=== PATIENT | female | born 1990 | race Asian ===

== ENCOUNTER 2017-04-24 00:38 | Inpatient (IN) | payer OTHER ==
[~2017-04-24] VITALS: Ht 162.6 cm; Wt 67.2 kg
[2017-04-24] MEDS ORDERED: OXYTOCIN 30U/ 0.9% NaCL 500ML 500 ML IV ONE (01:34)
[2017-04-24] MEDS ORDERED: D5%-LACTATED RINGERS 1,000 ML IV SCH (01:34)
[2017-04-24] MEDS: LACTATED RINGERS 1,000 ML IV SCH ×2 (01:50→08:47)
[2017-04-24] MEDS ORDERED: TERBUTALINE 1 MG/ML, 1ML IVPush PRN (02:00)
[2017-04-24] MEDS ORDERED: METOCLOPRAMIDE 5 MG/ML, 2ML IVPush PRN (02:00)
[2017-04-24] MEDS ORDERED: SODIUM CITRATE/CITRIC ACID 30 ML UDC PO PRN (02:00)
[2017-04-24] MEDS ORDERED: FENTANYL PF 100 MCG/2ML IV PRN (02:00)
[2017-04-24] MEDS ORDERED: ONDANSETRON 2MG/ML, 2ML IVPush PRN (02:00)
[2017-04-24] MEDS ORDERED: CALCIUM CARBONATE 500 MG TAB.CHEW PO PRN (02:00)
[2017-04-24] MEDS ORDERED: FENTANYL PF 100 MCG/2ML IVPush PRN (02:00)
[2017-04-24 02:12] LABS: HEMATOCRIT 38.5 % (34.6-47.8); HEMOGLOBIN 12.8 g/dL (11.7-16.4); WHITE BLOOD COUNT 7.6 x10^3/uL (3.4-10)
[2017-04-24] MEDS ORDERED: NEWBORN KIT ONE (02:27)
[2017-04-24] MEDS ORDERED: LIDOCAINE 1%, 20ML ONE (02:27)
[2017-04-24] MEDS ORDERED: OXYTOCIN 30U/ 0.9% NaCL 500ML 500 ML ONE (02:28)
[2017-04-24] MEDS ORDERED: MISOPROSTOL 200 MCG TABLET ONE (02:28)
[2017-04-24] MEDS ORDERED: PLEASE ENTER HEIGHT AND WEIGHT MC SCH (03:00)
[2017-04-24] MEDS ORDERED: PLEASE ENTER ALLERGIES MC SCH ×2 (03:00)
[2017-04-24] MEDS ORDERED: PREN1TAB60 PO (03:25)
[2017-04-24] MEDS ORDERED: OXYTOCIN 30U/ 0.9% NaCL 500ML 500 ML IV PRN (05:00)
[2017-04-24 07:19] VITALS: BP 107/59
[2017-04-24] MEDS ORDERED: FENTANYL/BUPIV./NS/PF 250 ML EPIDCONT ONE (09:06)
[2017-04-24] MEDS ORDERED: LIDOCAINE/PF 1.5%-EPI 1:200K, 30ML ONE (09:06)
[2017-04-24] MEDS ORDERED: LACTATED RINGERS 1,000 ML IV SCH (10:27)
[2017-04-24] MEDS ORDERED: FENTANYL/BUPIV./NS/PF 250 ML EPIDCONT SCH (10:27)
[2017-04-24] MEDS ORDERED: LACTATED RINGERS 1,000 ML IVBOLUS PRN (10:30)
[2017-04-24] MEDS: OXYTOCIN 30U/ 0.9% NaCL 500ML 500 ML IV SCH (17:24)
[2017-04-24] MEDS ORDERED: OXYcodone IR 5MG TABLET PO PRN (17:30)
[2017-04-24] MEDS ORDERED: ONDANSETRON 2MG/ML, 2ML IV PRN (17:30)
[2017-04-24] MEDS ORDERED: MISOPROSTOL 200 MCG TABLET PR PRN (17:30)
[2017-04-24] MEDS ORDERED: IBUPROFEN 600 MG TABLET ONE (19:15)
[2017-04-24] MEDS: IBUPROFEN 600 MG TABLET PO PRN (19:17)
[2017-04-24 20:10] VITALS: BP 105/66
[2017-04-25] VITALS: BP 103/65
[2017-04-25 01:14] LABS: HEMATOCRIT 38.4 % (34.6-47.8); HEMOGLOBIN 12.7 g/dL (11.7-16.4); WHITE BLOOD COUNT 14.9 x10^3/uL (3.4-10)
[2017-04-25] MEDS: OXYTOCIN 30U/ 0.9% NaCL 500ML 500 ML IV SCH ×3 (03:24→23:24)
[2017-04-25 04:40] VITALS: BP 90/61
[2017-04-25 08:00] VITALS: BP 114/76
[2017-04-25] MEDS: PRENATAL VIT/IRON/FA 1 EACH TABLET PO SCH (08:32)
[2017-04-25] MEDS: IBUPROFEN 600 MG TABLET PO PRN ×3 (08:36→22:10)
[2017-04-25] MEDS: DOCUSATE 100 MG CAPSULE PO PRN ×2 (08:38→20:56)
[2017-04-25 12:00] VITALS: BP 110/74
[2017-04-25] MEDS ORDERED: DIPH,PERTUSS(ACELL),TET VAC/PF NC IM-VACC ONE (16:09)
[2017-04-25 16:53] VITALS: BP 113/76
[2017-04-25 20:00] VITALS: BP 104/68
[2017-04-25] MEDS: OXYcodone/APAP 5/325MG TABLET PO PRN (20:56)
[2017-04-26] MEDS: OXYcodone/APAP 5/325MG TABLET PO PRN ×2 (04:16→08:08)
[2017-04-26] MEDS: IBUPROFEN 600 MG TABLET PO PRN ×2 (04:16→12:45)
[2017-04-26] MEDS: DOCUSATE 100 MG CAPSULE PO PRN (08:08)
[2017-04-26] MEDS: PRENATAL VIT/IRON/FA 1 EACH TABLET PO SCH (08:08)
[2017-04-26 08:10] VITALS: BP 111/66
[2017-04-26] MEDS: OXYTOCIN 30U/ 0.9% NaCL 500ML 500 ML IV SCH (09:24)
[2017-04-26] MEDS ORDERED: OXYC-302 PO (14:34)
[2017-04-26] MEDS ORDERED: IBUP-1222 PO (14:36)
== END 2017-04-26 16:30 | disposition home or self-care (01) | DRG 774 ==
LOC: LDOP 00:38 → LDIP 01:37 → 2NW 19:48
PROVIDERS: ADMIT Obstetrics & Gynecology; ATTEND Obstetrics & Gynecology
PROC: 10E0XZZ Delivery of Products of Conception, External Approach (ICD-10-PCS; principal; 2017-04-24)
PROC: 0DQR0ZZ Repair Anal Sphincter, Open Approach (ICD-10-PCS; 2017-04-24)
PROC: 3E0S3CZ (ICD-10-PCS; 2017-04-24)
PROC: 00HU33Z Insertion of Infusion Device into Spinal Canal, Percutaneous Approach (ICD-10-PCS; 2017-04-24)
DX: O24.420 Gestational diabetes mellitus in childbirth, diet controlled (principal); O98.42 Viral hepatitis complicating childbirth; O70.20 Third degree perineal laceration during delivery, unspecified; B15.9 Hepatitis A without hepatic coma; Z37.0 Single live birth; Z3A.37 37 weeks gestation of pregnancy
CPT/HCPCS: 36415; 82962; 85025; 86850; 86900; 89060; J3490; J2590; J3010; J7120; Q0114